=== PATIENT | male | born 1930 | race Caucasian/White ===

== ENCOUNTER 2021-02-20 12:21 | Inpatient (IN) | payer OTHER ==
[~2021-02-20] VITALS: Ht 167.6 cm; Wt 90.2 kg
[2021-02-20 12:38] VITALS: BP 136/75
[2021-02-20 15:30] LABS: ABSOLUTE EOSINOPHILS 0.1 thou/uL (0.0-0.7); ABSOLUTE LYMPHOCYTES 1.1 thou/uL (0.8-5.3); ABSOLUTE MONOCYTES 0.5 thou/uL (0.0-1.2); ABSOLUTE NEUTROPHILS 4.4 thou/uL (1.6-8.1); BASOPHILS 0.5 %; EOSINOPHILS 1.3 %; HEMATOCRIT 32.6 % (42.0-52.0); HEMOGLOBIN 10.7 gm/dL (14.0-18.0); LYMPHOCYTES 17.5 %; MCH 29.1 pg (26.0-34.0); MCHC 32.8 g/dL (28.0-37.0); MCV 88.8 fL (80.0-100.0); MONOCYTES 8.2 %; NUCLEATED RBCS 0 /100WBC; PLATELET COUNT* 141 thou/uL (150-400); POLYS 72.5 %; RBC 3.67 mil/uL (4.50-6.00); RDW-CV 16.2 % (10.5-14.5); WBC 6.1 thou/uL (4.0-11.0)
[2021-02-20 15:35] LABS: CALCIUM 8.4 mg/dL (8.5-10.1); CREATININE 1.7 mg/dL (0.6-1.3); POTASSIUM 4.3 mmol/L (3.5-5.1)
--- NOTE | 2021-02-20 15:36 | EKG ---
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
[2021-02-20 15:43] LABS: ALBUMIN 3.2 g/dL (3.4-5.0); TOTAL BILIRUBIN 1.4 mg/dL (<0.1-1.0)
[2021-02-20 16:04] LABS: URINE BILIRUBIN NEGATIVE (Negative); URINE BLOOD NEGATIVE (Negative); URINE CLARITY CLEAR; URINE COLOR YELLOW; URINE GLUCOSE-RANDOM NEGATIVE (Negative); URINE KETONES NEGATIVE (Negative); URINE LEUKOCYTES NEGATIVE (Negative); URINE NITRITE NEGATIVE (Negative); URINE PROTEIN NEGATIVE (Negative); URINE UROBILINOGEN 0.2 E.U./dl (0.2-1.0)
[2021-02-20 20:59] LABS: PCO2 33.1 mmHg (35.0-45.0); pH 7.369 (7.340-7.450)
[2021-02-20 21:03] LABS: PO2 272.4 mmHg (75.0-100.0)
[2021-02-20 22:00] VITALS: BP 110/60
[2021-02-20 23:01] VITALS: BP 104/59
[2021-02-21] VITALS (67 sets, daily range): BP systolic 73–149; BP diastolic 41–75
[2021-02-21 05:45] LABS: HEMATOCRIT 27.6 % (42.0-52.0); HEMOGLOBIN 9.2 gm/dL (14.0-18.0); MCH 29.4 pg (26.0-34.0); MCHC 33.3 g/dL (28.0-37.0); MCV 88.4 fL (80.0-100.0); MPV 7.8 fl. (7.2-11.1); RBC 3.12 mil/uL (4.50-6.00); RDW-CV 16.1 % (10.5-14.5); WBC 5.5 thou/uL (4.0-11.0)
[2021-02-21 05:53] LABS: CALCIUM 7.8 mg/dL (8.5-10.1); CREATININE 1.5 mg/dL (0.6-1.3); POTASSIUM 3.4 mmol/L (3.5-5.1)
[2021-02-21 08:57] LABS: BE -3.5 mmol/L (-2 to +3); PCO2 34.4 mmHg (35.0-45.0); PO2 100.4 mmHg (75.0-100.0); pH 7.398 (7.340-7.450)
--- NOTE | 2021-02-21 11:12 | EKG ---
[place] [address] ELECTROCARDIOGRAM REPORT Name: JESSI GARCÍA Room: [address] M.R.#: [id number] Admission: 02/20/21 Attend Phys: Sherman Burrows Discharge: Date of : [birth year] Date of Service: 02/20/211930 Report #: [id number] THIS REPORT FOR: //name// [facility] ED Test Date: 2021-02-20 Test Time: 19:31:27 Pat Name: JESSI GARCÍA Department: Room: [address] Gender: M Hitch Technician: [place] : [id number] Requested By: Ijeoma Montanez Order Number: [id number] MD: Nabil Hood Measurements Intervals [place] Rate: 184 P: 0 PA: 96 QRS: -58 QRSD: 102 T: 108 QT: 276 QTc: 483 Interpretive Statements rapid atrial fibrillation Left anterior fascicular block Borderline low voltage, extremity leads Abnormal R-wave progression, late transition Repolarization abnormality, prob rate related Compared to ECG 02/20/2021 15:06:13 Early repolarization now present rate has increased Electronically Signed On 02-21-2021 11:11:48 CDT by Nabil Hood [email or web address] <ELECTRONICALLY SIGNED> By: Nabil Hood MD, FACC 02/21/21 1111 30 30 Nabil Hood MD, FACC /EPI
--- NOTE | 2021-02-21 11:12 | EKG ---
[place] [address] ELECTROCARDIOGRAM REPORT Name: JESSI GARCÍA Room: [address]#: [id number] Admission: 02/20/21 Attend Phys: Sherman Burrows Discharge: Date of : [birth year] Date of Service: 02/20/211942 Report #: [id number] THIS REPORT FOR: //name// 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 : 1930 Requested By: Ijeoma Montanez Order Number: [id number] MD: Nabil Hood Measurements Intervals [place] Rate: 137 P: [place]: QRS: -58 QRSD: 105 T: 103 QT: 312 QTc: 471 Interpretive Statements Atrial fibrillation Left anterior fascicular block Abnormal R-wave progression, late transition Nonspecific T abnormalities, lateral leads Compared to ECG 02/20/2021 19:31:27 rate has decreased Early repolarization no longer present Electronically Signed On 02-21-2021 11:12:28 CDT by Nabil Hood [email or web address] <ELECTRONICALLY SIGNED> By: Nabil Hood MD, FACC 02/21/21 1112 42 42 Nabil Hood MD, FACC /EPI
--- NOTE | 2021-02-21 11:14 | EKG ---
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[place] : 1930 Requested By: Ijeoma Montanez Order Number: [id number] MD: Nabil Hood Measurements Intervals [place] Rate: 120 P: [place]: QRS: -45 QRSD: 112 T: 79 QT: 372 QTc: 526 Interpretive Statements Atrial fibrillation left axis Borderline low voltage, extremity leads Borderline prolonged QT interval Compared to ECG 02/20/2021 19:43:48 Left anterior fascicular block no longer present rate has slowed Electronically Signed On 02-21-2021 11:13:48 CDT by Nabil Hood [email or web address] <ELECTRONICALLY SIGNED> By: Nabil Hood MD, FACC 02/21/21 1113 54 54 Nabil Hood MD, FACC /EPI
--- NOTE | 2021-02-21 11:44 | 2DMMODE ---
[place] [address] 2 D/M-MODE ECHOCARDIOGRAM Name: JESSI GARCÍA Room: [address] MQuetaR.#: [id number] Admission: 02/20/21 Attend Phys: Sherman Burrows Discharge: Date of : [birth year] Date of Service: 02/21/21 1143 Report #: [id number] THIS REPORT FOR: cc: CHRISTIE WHITT MD Physician not on staff Nabil Hood MD [facility] ~ APPROVED REPORT Study performed: 02/21/2021 09:32:15 EXAM: Comprehensive 2D, Doppler, and color-flow Echocardiogram Patient Location: Bedside BSA: 1.89 HR: 50 bpm BP: 135/66 mmHg Other Information Study Quality: Adequate Indications Syncope Post Arrest 2D Dimensions IVSd: 13.84 (7-11mm) LVOT Diam: 15.88 (18-24mm) LVDd: 36.49 mm PWd: 10.26 (7-11mm) Ascending Ao: 32.23 (22-36mm) LVDs: 28.64 (25-40mm) Aortic Root: 28.03 mm Volumes Left Atrial Volume (Systole) LA ESV Index: 45.90 mL/m2 Aortic Valve AoV Peak Guillermo.: 1.01 m/s AO Peak Gr.: 4.12 mmHg LVOT Max P.95 mmHg AO Mean Gr.: 2.55 mmHg LVOT Mean P.99 mmHg LVOT Max V: 0.70 m/s AO V2 VTI: 26.76 cm LVOT Mean V: 0.45 m/s QUANG (VTI): 1.09 cm2 LVOT V1 VTI: 14.75 [place] [address] 2 D/M-MODE ECHOCARDIOGRAM Name: JESSI GARCÍA Room: [address] M.R.#: [id number] Admission: 02/20/21 Attend Phys: Sherman Burrows Discharge: Date of : [birth year] Date of Service: 02/21/21 1143 Report #: [id number] MV Decel. Time: 183.26 ms MV PHT: 53.15 ms MVA (PHT): 4.14 cm2 TDI Medial E' Guillermo.: 0.08 m/s Lateral E' Guillermo.: 0.10 m/s Pulmonary Valve PV Peak Guillermo.: 0.76 m/s PV Peak Gr.: 2.32 mmHg Tricuspid Valve RAP Estimate: 20.00 mmHg TR Peak Gr.: 36.75 mmHg RVSP: 56.75 mmHg PA Pressure: 56.75 mmHg Left Ventricle The left ventricle is normal size. There is global hypokinesis of the left ventricle. There is normal left ventricular wall thickness. Left ventricular systolic function is mildly decreased. LVEF is 40-45%. Right Ventricle Right ventricle is dilated. Right ventricle is moderately hypokinetic. Atria Left atrium is moderately dilated. Right atrium is dilated. Aortic Valve The Aortic valve is sclerotic. No aortic regurgitation is present. There is no aortic valvular stenosis. Mitral Valve There is mitral annular calcification. The mitral valve is normal in structure. Moderate mitral regurgitation. No evidence of mitral valve stenosis. Tricuspid Valve The tricuspid valve is normal in structure. Moderate tricuspid regurgitation. estimated pa pressure 45 mm Hg Pulmonic Valve The pulmonary valve is normal in structure. [place] [address] 2 D/M-MODE ECHOCARDIOGRAM Name: JESSI GARCÍA Room: [address] Kindra Puente#: [id number] Admission: 02/20/21 Attend Phys: Sherman Burrows Discharge: Date of : [birth year] Date of Service: 02/21/21 1143 Report #: [id number] Great Vessels The aortic root is normal in size. The IVC is dilated. Pericardium There is no pericardial effusion. <Conclusion> LVEF is 40-45%. Right ventricle is dilated. Right ventricle is moderately hypokinetic. Left atrium is moderately dilated. The Aortic valve is sclerotic. Moderate mitral regurgitation. Moderate tricuspid regurgitation. estimated pa pressure 45 mm Hg <ELECTRONICALLY SIGNED> By: Nabil Hood MD, FACC 02/21/21 1143 1143 1143 Nabil Hood MD, [facility] /INF
[2021-02-21 15:44] LABS: ABSOLUTE EOSINOPHILS 0.1 thou/uL (0.0-0.7); ABSOLUTE MONOCYTES 0.4 thou/uL (0.0-1.2); ABSOLUTE NEUTROPHILS 6.5 thou/uL (1.6-8.1); BASOPHILS 0.3 %; EOSINOPHILS 1.2 %; HEMOGLOBIN 10.6 gm/dL (14.0-18.0); LYMPHOCYTES 12.7 %; MCH 29.2 pg (26.0-34.0); MCHC 32.2 g/dL (28.0-37.0); MCV 90.8 fL (80.0-100.0); MONOCYTES 5.3 %; MPV 8.2 fl. (7.2-11.1); NUCLEATED RBCS 0 /100WBC; PLATELET COUNT* 144 thou/uL (150-400); POLYS 80.5 %; RBC 3.64 mil/uL (4.50-6.00); RDW-CV 16.4 % (10.5-14.5); WBC 8.1 thou/uL (4.0-11.0)
[2021-02-21 15:53] LABS: CALCIUM 7.9 mg/dL (8.5-10.1); CREATININE 1.6 mg/dL (0.6-1.3); MAGNESIUM 1.8 mg/dL (1.8-2.4)
[2021-02-21 15:54] LABS: POTASSIUM 4.4 mmol/L (3.5-5.1)
[2021-02-21 16:00] LABS: APTT 27.9 Seconds (25.0-31.3); INR 1.1
[2021-02-21 16:09] LABS: LIPASE 49 U/L (73-393)
[2021-02-21 16:23] LABS: TRIGLYCERIDE 76 mg/dL (<150)
--- NOTE | 2021-02-21 19:00 | CON ---
[address] [address] CONSULTATION Name: JESSI GARCÍA Room: [address] ADM IN M.R.#: [id number] Admission: 02/20/21 Attend Phys: Dorina Sterling Discharge: Date of : [birth year] Report #: [id number] THIS REPORT FOR: cc: CHRISTIE WHITT MD Physician not on staff Rudy Galvez MD ~ DATE OF CONSULTATION: 02/21/2021 REQUESTING PHYSICIAN: Dr. Sarmiento. INDICATION FOR CONSULTATION: Acute respiratory failure, post-cardiac arrest. HISTORY OF PRESENT ILLNESS: This is an 89 years old gentleman, past medical history includes a history of coronary artery disease. He has had stents placed. He does have a history of smoking as well; however, does not have a previous diagnosis of COPD. The patient is from [place]. He has been traveling to this area. His is also currently admitted to this hospital and I am told that she has now been made comfort measures. The patient is reported to have had diarrhea with loose stools. The exact duration, for which he has had diarrhea, is not known, but it appears that this may be for more than a month. He also has been having syncopal or near-syncopal episodes, unknown as to whether he received recent antibiotics. The patient is reported to have been evaluated in the Emergency Room and while he was in the Emergency Room, he is reported to have had a cardiac arrest. The initial rhythm according to the records is a PEA . He did receive atropine and epinephrine. After receiving atropine and epinephrine, he has had atrial fibrillation and may have had other supraventricular rhythms as well. It is not fully clear to me as to whether the patient has had atrial fibrillation previous to this. The patient was started on a diltiazem drip, but became bradycardic and this was discontinued. Currently, the patient is on the ventilator. He is on assist control mode of ventilation. He sedated with 15 of propofol. He is ventilating and oxygenating adequately. He is on 35% FiO2. He does have a central line in place. He currently does not have any pressors running. He does have significant swelling of lower extremities. The patient is on the ventilator and therefore is unable to provide further history or review of systems. PAST MEDICAL HISTORY: Coronary artery disease, status post stents, diabetes, hypertension. As noted, he has had atrial fibrillation overnight, unknown as to whether he had atrial fibrillation in the past. The new echo shows a left ventricular ejection fraction of 40-45% with [place] [address] CONSULTATION Name: JESSI GARCÍA Room: [address] IN [facility]#: [id number] Admission: 02/20/21 Attend Phys: Dorina Sterling Discharge: Date of : [birth year] Report #: [id number] estimated between 45 and 57, also unknown as to whether these findings are new or old. SOCIAL HISTORY: He has a history of smoking in the past. He has now discontinued. I am unable to quantify exactly at this time. No known history of heavy alcohol use or illegal drug use. IMMUNIZATION HISTORY: According to the family, he was immunized for COVID-19 in June. FAMILY HISTORY: As noted. is also currently admitted to this hospital and is seriously ill. CURRENT MEDICATIONS: List in [facility] reviewed. HOME MEDICATIONS: Unknown at this time. ALLERGIES: No known drug allergies. PHYSICAL EXAMINATION: GENERAL: He is on propofol at 15. He appears to be well sedated with this. VITAL SIGNS: He has a pulse of 60, blood pressure 122/59. He is saturating 100%. He is on 35% FiO2, 5 of PEEP, tidal volume is 550 and AC rate is 14. He is afebrile with a temperature of 36.4. HEENT: Head is normocephalic and atraumatic. Endotracheal tube is in good position. NECK: Does not show raised JVP, asymmetry, mass or lymph nodes. CHEST: Symmetrical expansion on inspection and palpation. On auscultation, breath sounds are decreased on the right side though, compared with the left. HEART: Irregular, but there is no murmur. ABDOMEN: Soft and nontender. EXTREMITIES: Lower extremities show 2+ edema, no calf tenderness. SKIN: Dry and intact. NEUROLOGIC: Limited due to sedation. LABORATORY DATA: The patient's chest x-ray performed yesterday is reviewed. This shows bilateral interstitial infiltrates, the likely etiology of this is mild increase in pulmonary vascular congestion; however, viral and atypical pneumonia can also lead to this picture. The patient's lab work is in [facility] and this is reviewed. Potassium is low. I requested a magnesium to be added to this morning's labs and it is low at 1.3. He does have mild hyperglycemia at 203 glucose. ASSESSMENT AND PLAN: [place] [address] [place] [address] CONSULTATION Name: JESSI GARCÍA Room: [address] ADM IN .R.#: [id number] Admission: 02/20/21 Attend Phys: Dorina Sterling Discharge: Date of : [birth year] Report #: [id number] 1. Acute respiratory failure, post-cardiac arrest. Breath sounds are decreased on the right side compared to the left. He also does have interstitial infiltrates or increase in pulmonary vascular congestion on chest x-ray. At this time, I would go ahead and repeat a chest x-ray now and see where we stand. I would also continue with propofol as currently prescribed. We will give him p.r.n. fentanyl if needed. Recommend assessing for weaning tomorrow morning. 2. Recurrent syncopal episode/status post-cardiac arrest. Cardiology service is on the case and is evaluating etiology. 3. Pulmonary infiltrates. This could be secondary to pulmonary vascular congestion; however, viral or atypical pneumonia is not ruled out. His COVID vaccine was more than 6 months ago. Therefore, I would go ahead and do a COVID-19 PCR as well. He tested negative for the antigen. He is on Zosyn, I agree, we will continue. I considered as to whether I should add atypical coverage. Considering that the patient had recent arrhythmia leading to cardiac arrest as well as the fact that we have not ruled out Clostridium difficile, I decided to hold off for now, but we will consider should he fail to improve. 4. Systolic congestive heart failure/history of coronary artery disease. He does have reduction in left ventricular ejection fraction as above, unknown as to whether new or old. 5. Pedal edema. We will also do venous Dopplers. Pulmonary emboli are not ruled out at this time, but he is high risk for IV dye and therefore, I would hold off on a CTA chest. 6. Diarrhea. We will give him Flagyl until the Clostridium difficile is back. 7. History of smoking/possible underlying chronic obstructive pulmonary disease. We will order albuterol. I only ordered 40 mg of Solu-Medrol daily x 3 doses, adjust per response. 8. Deep venous thrombosis prophylaxis. He is on Lovenox. 9. Gastrointestinal prophylaxis. We will start Protonix. 10. Hyperglycemia. We will order insulin sliding scale. The patient is critically ill at this time. Total time spent providing critical care to this patient today exceeds 50 minutes. <ELECTRONICALLY SIGNED> By: Rudy Galvez MD 02/21/21 1900 1123 1205Arafiq Galvez MD /nt
[2021-02-22] VITALS (81 sets, daily range): BP systolic 89–174; BP diastolic 26–117
[2021-02-22 15:23] LABS: PCO2 32.1 mmHg (35.0-45.0); PO2 104.1 mmHg (75.0-100.0); pH 7.373 (7.340-7.450)
[2021-02-23] VITALS (51 sets, daily range): BP systolic 116–166; BP diastolic 47–104
[2021-02-23 05:06] LABS: ALBUMIN 2.7 g/dL (3.4-5.0); CALCIUM 8.3 mg/dL (8.5-10.1); CREATININE 1.5 mg/dL (0.6-1.3); POTASSIUM 4.4 mmol/L (3.5-5.1); TOTAL BILIRUBIN 0.7 mg/dL (<0.1-1.0); TOTAL PROTEIN 6.3 g/dL (6.4-8.2)
[2021-02-23 05:50] LABS: ABSOLUTE LYMPHOCYTES 0.7 thou/uL (0.8-5.3); ABSOLUTE MONOCYTES 0.9 thou/uL (0.0-1.2); ABSOLUTE NEUTROPHILS 9.3 thou/uL (1.6-8.1); BASOPHILS 0.1 %; HEMATOCRIT 31.8 % (42.0-52.0); HEMOGLOBIN 10.6 gm/dL (14.0-18.0); LYMPHOCYTES 6.8 %; MCH 29.5 pg (26.0-34.0); MCHC 33.2 g/dL (28.0-37.0); MCV 88.8 fL (80.0-100.0); MONOCYTES 8.3 %; MPV 8.3 fl. (7.2-11.1); NUCLEATED RBCS 0 /100WBC; PLATELET COUNT* 171 thou/uL (150-400); POLYS 84.8 %; RBC 3.58 mil/uL (4.50-6.00); RDW-CV 16.5 % (10.5-14.5)
[2021-02-23 14:04] LABS: PCO2 ND mmHg (35.0-45.0); pH ND (7.340-7.450)
[2021-02-23 14:05] LABS: PO2 ND mmHg (75.0-100.0)
[2021-02-23 14:06] LABS: BE ND mmol/L (-2 to +3)
[2021-02-23 14:26] LABS: BE -8.2 mmol/L (-2 to +3); PCO2 36.3 mmHg (35.0-45.0); PO2 80.4 mmHg (75.0-100.0)
[2021-02-23 14:34] LABS: pH 7.299 (7.340-7.450)
[2021-02-23 16:14] LABS: URINE BILIRUBIN NEGATIVE (Negative); URINE BLOOD 3+ (Negative); URINE CLARITY SL CLOUDY; URINE COLOR RED; URINE GLUCOSE-RANDOM NEGATIVE (Negative); URINE KETONES NEGATIVE (Negative); URINE LEUKOCYTES-REFLEX TRACE (Negative); URINE NITRITE-REFLEX NEGATIVE (Negative); URINE PROTEIN TRACE (Negative); URINE SPECIFIC GRAVITY 1.015 (1.005-1.030); URINE UROBILINOGEN 0.2 E.U./dl (0.2-1.0)
[2021-02-23 16:26] LABS: BACTERIA-REFLEX 1-9 Few /HPF (None Seen); SQUAMOUS 4-10 Moderate /LPF (0-3); URINE RBC >20 Many /HPF (0-2); URINE WBC-REFLEX 0-5 Rare /HPF (0-5)
[2021-02-23 16:27] LABS: CASTS None Seen /LPF (None Seen); CRYSTALS None Seen /LPF (None Seen)
[2021-02-23] MEDS ORDERED: HYTRIN 1 MG CAP1 MG (17:02)
[2021-02-23] MEDS ORDERED: LISINOPRIL5 MG (17:02)
[2021-02-23] MEDS ORDERED: TAMSULOSIN HCL0.4 MG (17:02)
[2021-02-23] MEDS ORDERED: LIPITOR 40 MG T40 M1 (17:03)
[2021-02-23] MEDS ORDERED: METOPROLOL SUC100 MG (17:03)
[2021-02-23] MEDS ORDERED: FUROSEMIDE 20 M20 M1 (17:03)
[2021-02-23] MEDS ORDERED: ARICEPT10 MG (17:03)
[2021-02-23] MEDS ORDERED: DUTASTERIDE0.5 MG (17:03)
[2021-02-23] MEDS ORDERED: PROTONIX40 M2 (17:04)
[2021-02-23] MEDS ORDERED: IMDUR 60 MG TAB60 M1 (17:04)
[2021-02-23] MEDS ORDERED: METOPROLOL SUCC50 MG (17:04)
[2021-02-23] MEDS ORDERED: METFORMIN HCL500 MG (17:04)
[2021-02-23] MEDS ORDERED: DONEPEZIL HCL 55 M1 (17:05)
[2021-02-23] MEDS ORDERED: NITROSTAT0.4 MG (17:06)
[2021-02-24] VITALS (46 sets, daily range): BP systolic 69–173; BP diastolic 54–83
[2021-02-24 03:51] LABS: ABSOLUTE LYMPHOCYTES 0.6 thou/uL (0.8-5.3); ABSOLUTE MONOCYTES 0.8 thou/uL (0.0-1.2); ABSOLUTE NEUTROPHILS 7.9 thou/uL (1.6-8.1); BASOPHILS 0.1 %; HEMATOCRIT 30.8 % (42.0-52.0); LYMPHOCYTES 6.1 %; MCH 28.9 pg (26.0-34.0); MCHC 32.4 g/dL (28.0-37.0); MONOCYTES 9.1 %; MPV 7.9 fl. (7.2-11.1); NUCLEATED RBCS 0 /100WBC; PLATELET COUNT* 174 thou/uL (150-400); POLYS 84.7 %; RBC 3.46 mil/uL (4.50-6.00); RDW-CV 16.9 % (10.5-14.5); WBC 9.3 thou/uL (4.0-11.0)
[2021-02-24 04:19] LABS: ALBUMIN 2.8 g/dL (3.4-5.0); CALCIUM 8.3 mg/dL (8.5-10.1); CREATININE 1.7 mg/dL (0.6-1.3); POTASSIUM 3.9 mmol/L (3.5-5.1); TOTAL PROTEIN 6.5 g/dL (6.4-8.2)
[2021-02-24 23:06] LABS: MYCOPLASMA PNEUMONIA IgM <770 U/mL (0-769)
[2021-02-25] VITALS (25 sets, daily range): BP systolic 118–171; BP diastolic 56–96
[2021-02-25 02:08] LABS: MYCOPLASMA PNEUMONIA IgG <100 U/mL (0-99)
[2021-02-25 05:03] LABS: HEMATOCRIT 29.6 % (42.0-52.0); HEMOGLOBIN 9.7 gm/dL (14.0-18.0); MCH 29.1 pg (26.0-34.0); MCHC 32.9 g/dL (28.0-37.0); MCV 88.4 fL (80.0-100.0); MPV 8.1 fl. (7.2-11.1); RBC 3.34 mil/uL (4.50-6.00); RDW-CV 16.6 % (10.5-14.5); WBC 8.4 thou/uL (4.0-11.0)
[2021-02-25 05:09] LABS: ALBUMIN 2.9 g/dL (3.4-5.0); CALCIUM 8.5 mg/dL (8.5-10.1); CREATININE 1.9 mg/dL (0.6-1.3); MAGNESIUM 1.9 mg/dL (1.8-2.4); POTASSIUM 3.5 mmol/L (3.5-5.1); TOTAL PROTEIN 6.5 g/dL (6.4-8.2)
[2021-02-25 15:59] LABS: CALCIUM 8.7 mg/dL (8.5-10.1); CREATININE 1.9 mg/dL (0.6-1.3); POTASSIUM 3.7 mmol/L (3.5-5.1)
[2021-02-26] VITALS (17 sets, daily range): BP systolic 101–161; BP diastolic 52–97
[2021-02-26 05:33] LABS: HEMATOCRIT 31.7 % (42.0-52.0); HEMOGLOBIN 10.4 gm/dL (14.0-18.0); MCH 28.9 pg (26.0-34.0); MCHC 32.8 g/dL (28.0-37.0); MCV 88.1 fL (80.0-100.0); NUCLEATED RBCS 0 /100WBC; PLATELET COUNT* 175 thou/uL (150-400); RDW-CV 16.5 % (10.5-14.5); WBC 11.3 thou/uL (4.0-11.0)
[2021-02-26 05:44] LABS: ALBUMIN 2.9 g/dL (3.4-5.0); CALCIUM 8.8 mg/dL (8.5-10.1); CREATININE 1.7 mg/dL (0.6-1.3); MAGNESIUM 2.2 mg/dL (1.8-2.4); POTASSIUM 3.6 mmol/L (3.5-5.1); TOTAL PROTEIN 6.6 g/dL (6.4-8.2)
[2021-02-26 08:09] LABS: ABSOLUTE LYMPHOCYTES 0.8 thou/uL (0.8-5.3); ABSOLUTE MONOCYTES 0.5 thou/uL (0.0-1.2); ABSOLUTE NEUTROPHILS 10.1 thou/uL (1.6-8.1); PLATELET ESTIMATE ADEQUATE
[2021-02-26 08:10] LABS: HYPOCHROMASIA Occasional
[2021-02-27] VITALS: BP 149/83
[2021-02-27 04:00] VITALS: BP 126/58
[2021-02-27 05:10] LABS: ABSOLUTE LYMPHOCYTES 0.3 thou/uL (0.8-5.3); ABSOLUTE MONOCYTES 0.8 thou/uL (0.0-1.2); ABSOLUTE NEUTROPHILS 8.4 thou/uL (1.6-8.1); BASOPHILS 0.1 %; HEMATOCRIT 29.7 % (42.0-52.0); HEMOGLOBIN 9.7 gm/dL (14.0-18.0); MCH 28.8 pg (26.0-34.0); MCHC 32.7 g/dL (28.0-37.0); MCV 88.1 fL (80.0-100.0); MONOCYTES 8.2 %; MPV 8.1 fl. (7.2-11.1); NUCLEATED RBCS 0 /100WBC; PLATELET COUNT* 163 thou/uL (150-400); POLYS 88.7 %; RBC 3.37 mil/uL (4.50-6.00); RDW-CV 16.3 % (10.5-14.5); WBC 9.5 thou/uL (4.0-11.0)
[2021-02-27 05:19] LABS: ALBUMIN 2.4 g/dL (3.4-5.0); CALCIUM 8.4 mg/dL (8.5-10.1); CREATININE 1.6 mg/dL (0.6-1.3); POTASSIUM 3.9 mmol/L (3.5-5.1); TOTAL BILIRUBIN 0.7 mg/dL (<0.1-1.0); TOTAL PROTEIN 5.9 g/dL (6.4-8.2)
[2021-02-27 09:12] VITALS: BP 145/72
[2021-02-27 13:12] VITALS: BP 106/76
[2021-02-27 17:41] VITALS: BP 120/61
[2021-02-27 20:00] VITALS: BP 164/79
[2021-02-28] VITALS: BP 141/72
[2021-02-28 04:00] VITALS: BP 143/74
[2021-02-28 05:49] LABS: ABSOLUTE LYMPHOCYTES 0.3 thou/uL (0.8-5.3); ABSOLUTE MONOCYTES 0.9 thou/uL (0.0-1.2); ABSOLUTE NEUTROPHILS 9.8 thou/uL (1.6-8.1); BASOPHILS 0.2 %; HEMATOCRIT 31.6 % (42.0-52.0); HEMOGLOBIN 10.3 gm/dL (14.0-18.0); LYMPHOCYTES 3.1 %; MCH 28.6 pg (26.0-34.0); MCHC 32.6 g/dL (28.0-37.0); MCV 87.9 fL (80.0-100.0); MONOCYTES 8.3 %; MPV 7.8 fl. (7.2-11.1); NUCLEATED RBCS 0 /100WBC; PLATELET COUNT* 153 thou/uL (150-400); POLYS 88.4 %; RBC 3.59 mil/uL (4.50-6.00); RDW-CV 16.2 % (10.5-14.5); WBC 11.1 thou/uL (4.0-11.0)
[2021-02-28 06:05] LABS: ALBUMIN 2.5 g/dL (3.4-5.0); CALCIUM 8.4 mg/dL (8.5-10.1); CREATININE 1.7 mg/dL (0.6-1.3); MAGNESIUM 1.9 mg/dL (1.8-2.4); TOTAL BILIRUBIN 0.8 mg/dL (<0.1-1.0)
[2021-02-28 07:55] VITALS: BP 132/77
[2021-02-28 11:30] VITALS: BP 124/63
[2021-02-28 16:00] VITALS: BP 137/68
[2021-02-28 20:00] VITALS: BP 151/75; BP 153/76
[2021-03-01] VITALS: BP 141/71
[2021-03-01 04:43] VITALS: BP 143/67
[2021-03-01 05:08] LABS: ABSOLUTE LYMPHOCYTES 0.2 thou/uL (0.8-5.3); ABSOLUTE MONOCYTES 0.5 thou/uL (0.0-1.2); ABSOLUTE NEUTROPHILS 8.2 thou/uL (1.6-8.1); BASOPHILS 0.2 %; HEMATOCRIT 30.5 % (42.0-52.0); HEMOGLOBIN 10.3 gm/dL (14.0-18.0); LYMPHOCYTES 2.6 %; MCH 29.1 pg (26.0-34.0); MCHC 33.6 g/dL (28.0-37.0); MCV 86.8 fL (80.0-100.0); MONOCYTES 5.4 %; MPV 8.1 fl. (7.2-11.1); NUCLEATED RBCS 0 /100WBC; PLATELET COUNT* 148 thou/uL (150-400); POLYS 91.8 %; RBC 3.52 mil/uL (4.50-6.00); RDW-CV 16.2 % (10.5-14.5); WBC 8.9 thou/uL (4.0-11.0)
[2021-03-01 06:50] LABS: ALBUMIN 2.8 g/dL (3.4-5.0); CALCIUM 8.6 mg/dL (8.5-10.1); CREATININE 1.7 mg/dL (0.6-1.3); POTASSIUM 3.6 mmol/L (3.5-5.1); TOTAL BILIRUBIN 0.9 mg/dL (<0.1-1.0)
[2021-03-01 07:40] VITALS: BP 145/68
[2021-03-01 11:30] VITALS: BP 134/59
[2021-03-01 16:00] VITALS: BP 117/66
[2021-03-01 20:00] VITALS: BP 151/75
[2021-03-02 00:27] VITALS: BP 145/70
[2021-03-02 04:22] VITALS: BP 134/71
[2021-03-02 07:48] LABS: HEMOGLOBIN 10.5 gm/dL (14.0-18.0); MCH 28.6 pg (26.0-34.0); MCHC 32.7 g/dL (28.0-37.0); MCV 87.4 fL (80.0-100.0); MPV 8.2 fl. (7.2-11.1); NUCLEATED RBCS 0 /100WBC; PLATELET COUNT* 162 thou/uL (150-400); RBC 3.66 mil/uL (4.50-6.00); RDW-CV 16.3 % (10.5-14.5); WBC 11.2 thou/uL (4.0-11.0)
[2021-03-02 08:16] LABS: CALCIUM 8.6 mg/dL (8.5-10.1); CREATININE 1.6 mg/dL (0.6-1.3); MAGNESIUM 1.9 mg/dL (1.8-2.4); POTASSIUM 4.1 mmol/L (3.5-5.1); TOTAL PROTEIN 6.2 g/dL (6.4-8.2)
[2021-03-02 09:14] VITALS: BP 118/82
[2021-03-02 10:46] LABS: ABSOLUTE LYMPHOCYTES 0.1 thou/uL (0.8-5.3); ABSOLUTE MONOCYTES 0.7 thou/uL (0.0-1.2); ABSOLUTE NEUTROPHILS 10.4 thou/uL (1.6-8.1)
[2021-03-02 10:48] LABS: HYPOCHROMASIA Occasional; PLATELET ESTIMATE ADEQUATE
[2021-03-02 10:49] LABS: BURR CELLS 1+
[2021-03-02 12:00] VITALS: BP 128/74
[2021-03-02 16:00] VITALS: BP 157/64
[2021-03-02 20:00] VITALS: BP 129/73
[2021-03-03] VITALS: BP 106/59
[2021-03-03 04:00] VITALS: BP 150/68
[2021-03-03 04:00] LABS: HEMATOCRIT 30.7 % (42.0-52.0); HEMOGLOBIN 10.2 gm/dL (14.0-18.0); MCH 28.8 pg (26.0-34.0); MCHC 33.1 g/dL (28.0-37.0); MCV 87.1 fL (80.0-100.0); MPV 8.1 fl. (7.2-11.1); NUCLEATED RBCS 0 /100WBC; PLATELET COUNT* 140 thou/uL (150-400); RBC 3.53 mil/uL (4.50-6.00); RDW-CV 16.5 % (10.5-14.5); WBC 11.3 thou/uL (4.0-11.0)
[2021-03-03 04:22] LABS: ALBUMIN 3.1 g/dL (3.4-5.0); CALCIUM 8.7 mg/dL (8.5-10.1); CREATININE 1.6 mg/dL (0.6-1.3); POTASSIUM 4.3 mmol/L (3.5-5.1); TOTAL BILIRUBIN 1.1 mg/dL (<0.1-1.0)
[2021-03-03 05:02] LABS: ABSOLUTE LYMPHOCYTES 0.8 thou/uL (0.8-5.3); ABSOLUTE MONOCYTES 0.5 thou/uL (0.0-1.2); ABSOLUTE NEUTROPHILS 10.1 thou/uL (1.6-8.1); ANISOCYTOSIS 1+; HYPOCHROMASIA 1+; PLATELET ESTIMATE DECREASED; POIKILOCYTOSIS 1+
[2021-03-03 05:03] LABS: TOXIC GRANULATION 1+
[2021-03-03 08:00] VITALS: BP 149/72
[2021-03-03 12:02] VITALS: BP 151/58
[2021-03-03 15:44] VITALS: BP 161/61
[2021-03-03 20:00] VITALS: BP 148/76
[2021-03-04] VITALS: BP 136/77
[2021-03-04 04:30] VITALS: BP 157/77
[2021-03-04 07:40] VITALS: BP 148/75
[2021-03-04 12:31] VITALS: BP 152/66
[2021-03-04 13:21] LABS: BF LYMPHOCYTES 17 %; BF POLYS 83 %
[2021-03-04 13:22] LABS: CLARITY CLEAR; SOURCE PLEURAL FLUID; TOTAL VOLUME 550 ml
[2021-03-04 13:23] LABS: TOTAL CELL COUNT 83 /mm3
[2021-03-04 13:24] LABS: BF RBC 489 /mm3
[2021-03-04 13:47] LABS: POTASSIUM 4.6 mmol/L (3.5-5.1)
[2021-03-04 13:56] LABS: CREATININE 1.8 mg/dL (0.6-1.3)
[2021-03-04 16:00] VITALS: BP 122/53
[2021-03-04 20:00] VITALS: BP 118/70
[2021-03-05] VITALS: BP 132/69
[2021-03-05 04:00] VITALS: BP 160/71
[2021-03-05 04:24] LABS: ABSOLUTE LYMPHOCYTES 0.4 thou/uL (0.8-5.3); ABSOLUTE MONOCYTES 0.5 thou/uL (0.0-1.2); HEMATOCRIT 30.9 % (42.0-52.0); HEMOGLOBIN 10.3 gm/dL (14.0-18.0); LYMPHOCYTES 3.4 %; MCH 28.7 pg (26.0-34.0); MCHC 33.2 g/dL (28.0-37.0); MCV 86.4 fL (80.0-100.0); MONOCYTES 3.6 %; MPV 8.3 fl. (7.2-11.1); NUCLEATED RBCS 0 /100WBC; PLATELET COUNT* 147 thou/uL (150-400); RBC 3.58 mil/uL (4.50-6.00); RDW-CV 15.8 % (10.5-14.5); WBC 12.9 thou/uL (4.0-11.0)
[2021-03-05 04:48] LABS: ALBUMIN 3.1 g/dL (3.4-5.0); CALCIUM 8.9 mg/dL (8.5-10.1); CREATININE 1.4 mg/dL (0.6-1.3); POTASSIUM 4.4 mmol/L (3.5-5.1); TOTAL BILIRUBIN 1.3 mg/dL (<0.1-1.0); TOTAL PROTEIN 6.1 g/dL (6.4-8.2)
[2021-03-05 07:39] VITALS: BP 150/75
[2021-03-05 08:16] VITALS: BP 150/75
[2021-03-05] MEDS ORDERED: PREDNISONE 20 M20 MG PO (08:50)
[2021-03-05] MEDS ORDERED: LOPRESSOR100 M1 PO (08:50)
[2021-03-05] MEDS ORDERED: IMDUR 30 MG TAB30 M1 PO (08:50)
[2021-03-05] MEDS ORDERED: DOXYCYCLINE 10100 MG PO (08:50)
[2021-03-05] MEDS ORDERED: CARDIZEM60 MG PO (08:50)
--- NOTE | 2021-03-05 10:12 | CON ---
[address] [address] CONSULTATION Name: JESSI GARCÍA Room: [address] IN M.R.#: [id number] Admission: 02/20/21 Attend Phys: Dorina Sterling Discharge: Date of : [birth year] Report #: [id number] THIS REPORT FOR: cc: CHRISTIE WHITT MD Physician not on staff Harlan Boles MD ~ DATE OF CONSULTATION: 02/21/2021 HISTORY OF PRESENT ILLNESS: This is an 89-year-old male patient who was seen by me to prognosticate the patient for hypoxic encephalopathy. The history is from the records and I reviewed admission history and physical examination, and subsequently I reviewed the cardiology consult and emergency room notes and it looks like the patient had a cardiac arrest. He was on sedation. The nurses said that when sedation vacation was given, he did not do anything. I believe I had seen this patient when he came to discuss the prognosis of his and he was in a wheelchair. His family was wheeling him down, so looks like he has a pretty significant background problem. There is also question of atrial fibrillation in this patient. REVIEW OF SYSTEMS: A 14-point review of systems was carried out and that is positive for multiple problems. It looks like he has difficulty with ambulation. I need to ask family to more history in that regard. When I saw him last time when he came to discuss the 's prognosis, he was able to talk, but he was slow in talking. Presently, he is in acute respiratory failure and he is intubated. Cardiology is evaluating this patient for atrial fibrillation. He was on 15 mg of propofol. Record indicated that there is a history of coronary artery disease, diabetes, hypertension and now at least atrial fibrillation has been noticed. This was his relevant 14-point review of systems. PAST MEDICAL HISTORY: Unavailable in this patient except as summarized above. SOCIAL HISTORY: Apparently, his is here. He has a prior history of smoking as per record. PHYSICAL EXAMINATION: Pretty limited. NEUROLOGIC: He did not respond to me at all, but he was on propofol. He has no reflexes and no doll's eye movement, but again he was on propofol, so neurological examination was not very reliable. He was intubated. VITAL SIGNS: Blood pressure is 133/66, respirations 14, pulse is 70. His RBC count is unremarkable. GFR is 41. LABORATORY DATA: He did have a CT scan of the head [place] [address] CONSULTATION Name: JESSI GARCÍA Room: [address]#: [id number] Admission: 02/20/21 Attend Phys: Dorina Sterling Discharge: Date of : [birth year] Report #: [id number] We did an EEG, but that was lost because of technical reasons. EEG appeared to be showing delta range activity on both sides. He has a well defined electrical activity. IMPRESSION: This patient appeared to have cardiac arrest. His EEG demonstrated well defined electrical activity. We need to continue to support this patient for the next several days to see if he starts responding because he still has cortical activity and looks like from the notes, which I am seeing now this patient appeared to have become responsive at least what I understand from the nurses note. We will repeat the patient's EEG around Wednesday and follow up at that time because I do not think any active neurological intervention is needed and this patient may need supportive care because he still has cortical activity on the EEG. <ELECTRONICALLY SIGNED> By: Harlan Boles MD 03/05/21 1012 17 193Harlan Boles MD /nt
--- NOTE | 2021-03-05 10:12 | EEG ---
[address] [address] EEG STUDY REPORT Name: JESSI GARCÍA Room: [address] IN M.R.#: [id number] Admission: 02/20/21 Attend Phys: Dorina Sterling Discharge: Date of : [birth year] Report #: [id number] THIS REPORT FOR: cc: CHRISTIE WHITT MD Physician not on staff Harlan Boles MD ~ DATE OF SERVICE: 02/22/2021 The patient's EEG was done by placing the electrode by standard 10-20 system of electrode placement. Both referential and sequential montages were used for recording. The EEG was done on propofol. The patient has a cortical activity present, which comes episodically, which can happen with propofol. Background activity in the period goes up to about 6 Hz, but most of the time it is slow. Photic stimulation is unremarkable. IMPRESSION: This patient's EEG is difficult to interpret because he is on propofol. It shows cortical activity. It is severely abnormal, which can be because of propofol or because of encephalopathy or a combination. <ELECTRONICALLY SIGNED> By: Harlan Boles MD 03/05/21 1012 1214 1247Parmariam Boles MD /nt
[2021-03-07 14:07] LABS: BODY FLUID PROTEIN 1.5 g/dL (())
== END 2021-03-05 10:20 | disposition left against medical advice (07) | DRG 208 ==
LOC: M.ERS 12:21 → M.TBA-ER 16:05 → M.ICU 16:05 → M.ORTHSURG 16:05 → M.TBA-ER 20:28 → M.ICU 21:47 → M.ORTHSURG 02-26 16:10
PROVIDERS: Emergency Medicine; Family Medicine; Internal Medicine; Internal Medicine Critical Care Medicine; Pediatrics; Personal Emergency Response Attendant; ADMIT Internal Medicine; ATTEND Internal Medicine
DX: J96.01 Acute respiratory failure with hypoxia (principal); I46.9 Cardiac arrest, cause unspecified; J69.0 Pneumonitis due to inhalation of food and vomit; N17.0 Acute kidney failure with tubular necrosis; G93.41 Metabolic encephalopathy; I48.21 Permanent atrial fibrillation; I42.9 Cardiomyopathy, unspecified; I50.20 Unspecified systolic (congestive) heart failure; E87.0 Hyperosmolality and hypernatremia; G93.1 Anoxic brain damage, not elsewhere classified; I13.0 Hypertensive heart and chronic kidney disease with heart failure and stage 1 through stage 4 chronic kidney disease, or unspecified chronic kidney disease; E11.22 Type 2 diabetes mellitus with diabetic chronic kidney disease; E11.65 Type 2 diabetes mellitus with hyperglycemia; N18.9 Chronic kidney disease, unspecified; Z20.822 Contact with and (suspected) exposure to COVID-19; D64.9 Anemia, unspecified; I25.10 Atherosclerotic heart disease of native coronary artery without angina pectoris; E87.8 Other disorders of electrolyte and fluid balance, not elsewhere classified; Z53.29 Procedure and treatment not carried out because of patient's decision for other reasons; R33.9 Retention of urine, unspecified; Z95.5 Presence of coronary angioplasty implant and graft